=== PATIENT | male | born 1980 | race Hispanic/Latino ===

== ENCOUNTER 2018-07-28 08:43 | Emergency (ER) | payer OTHER ==
[2018-07-28 08:56] VITALS: TEMP 98.5; BMI 25.2
[2018-07-28] MEDS ORDERED: Alum-Mag Hydrox-Simethicone Susp (30 mL) PO STA (09:27)
--- NOTE | 2018-07-28 09:35 | ED PDOC ---
HPI: Abdomen Time Seen by Provider: 07/28/18 09:28 Chief Complaint (Nursing): Abdominal Pain Chief Complaint (Provider): abd pain History Per: Patient (38 y/o male here with complaint of abdominal pain since taking pcn/tylenol #3 last night. Patient has h/o GERD/Hpylori as noted by endoscopy. Denies any vomiting/diarrhea/fevers/ chills. Currently not on any PPI. Took Gas ex in evening without relief. No h/o abd surgeries.) Past Medical History Reviewed: Historical Data, Nursing Documentation, Vital Signs Vital Signs: Last Vital Signs Temp 98.5 F 07/28/18 08:56 Pulse 76 07/28/18 08:56 Resp 17 07/28/18 08:56 BP 120/80 07/28/18 08:56 Pulse Ox 99 07/28/18 08:56 - Family History Family History: States: No Known Family Hx - Home Medications Home Medications: Ambulatory Orders Medication Instructions Recorded Pantoprazole Sodium [Protonix] 40 mg PO DAILY #15 ect 07/28/18 Ranitidine HCl [Zantac] 150 mg PO Q12 PRN #10 tablet 07/28/18 - Allergies Allergies/Adverse Reactions: Allergies Allergy/AdvReac Type Severity Reaction Status Date / Time No Known Allergies Allergy Verified 07/28/18 09:06 Review of Systems ROS Statement: Except As Marked, All Systems Reviewed And Found Negative Physical Exam - Reviewed Nursing Documentation Reviewed: Yes Vital Signs Reviewed: Yes - Physical Exam Appears: Positive for: Well, Non-toxic, No Acute Distress Head Exam: Positive for: ATRAUMATIC, NORMAL INSPECTION, NORMOCEPHALIC Skin: Positive for: Normal Color, Warm, DRY Eye Exam: Positive for: EOMI, Normal appearance, PERRL ENT: Positive for: Normal ENT Inspection Neck: Positive for: Normal, Painless ROM Cardiovascular/Chest: Positive for: Regular Rate, Rhythm Respiratory: Positive for: CNT, Normal Breath Sounds Gastrointestinal/Abdominal: Positive for: Normal Exam, Soft, Tenderness (epigastric/ruq) Back: Positive for: Normal Inspection Extremity: Positive for: Normal ROM Neurologic/Psych: Positive for: Alert, Oriented - Laboratory Results Result Diagrams: 07/28/18 09:34 07/28/18 09:34 - ECG O2 Sat by Pulse Oximetry: 99 - Progress ED Course And Treament: pepcid 20 mg iv x 1 dose zofran 4 mg iv x 1 dose maalox 30ml po x 1 dose viscous lidocaine 5ml po x 1 dose UPON RE-EXAMINATION, NONTENDER ABDOMEN. ADVISED RETURN FOR FEVER/WORSENING PAIN/VOMITING Disposition - Clinical Impression Clinical Impression: Gastritis - Patient ED Disposition Is Patient to be Admitted: No - Disposition Disposition: Routine/Home Disposition Time: 11:25 Condition: FAIR Prescriptions: Pantoprazole Sodium [Protonix] 40 mg PO DAILY #15 ect Ranitidine HCl [Zantac] 150 mg PO Q12 PRN #10 tablet PRN Reason: Pain, Moderate (4-7) Instructions: Gastritis (DC) Forms: [facility] ED School/Work Excuse
[2018-07-28] MEDS ORDERED: Alum-Mag Hydrox-Simethicone Susp (30 mL) ONE (09:56)
[2018-07-28 09:58] LABS: BASO % 0.4 % (0.0-2.0); EOS % 0.3 % (0.0-4.0); HEMOGLOBIN 16.1 g/dL (12.0-18.0); LYMPH # 1.1 K/uL (1.0-4.3); MEAN CORPUSCULAR HEMOGLOBIN 30.7 pg (27.0-31.0); MEAN CORPUSCULAR HGB CONC 33.7 g/dL (33.0-37.0); MEAN PLATELET VOLUME 8.9 fl (7.2-11.7); MONO # 0.6 K/uL (0.0-0.8); MONO % 6.5 % (0.0-10.0); NEUT % 81.8 % (50.0-75.0); RBC 5.24 Mil/uL (4.40-5.90); RED CELL DISTRIBUTION WIDTH 13.4 % (11.5-14.5); WHITE BLOOD COUNT 9.7 K/uL (4.8-10.8)
[2018-07-28 10:13] LABS: ALBUMIN 4.2 g/dL (3.5-5.0); ALT/SGPT 33 U/L (21-72); AST/SGOT 24 U/L (17-59); BLOOD UREA NITROGEN 12 mg/dl (9-20); CALCIUM 9.6 mg/dL (8.4-10.2); GFR NON-AFRICAN AMERICAN > 60; LIPASE 19 U/L (23-300)
[2018-07-28 11:41] VITALS: BP 125/80; PULSE 75; RESP 16
[2018-07-28 19:46] VITALS: O2SAT 99
== END 2018-07-28 11:41 | disposition home or self-care (01) ==
LOC: H.ER 08:43
DX: K29.70 Gastritis, unspecified, without bleeding (principal)